=== PATIENT | female | born 1970 | race Caucasian/White ===

== ENCOUNTER → 2017-08-08 | Outpatient (CLI) | payer OTHER | LOC: FIMAGING 14:13 | PROVIDERS: ATTEND Family Medicine | DX: Z12.31 Encounter for screening mammogram for malignant neoplasm of breast (principal); Z80.3 Family history of malignant neoplasm of breast ==

== ENCOUNTER 2018-05-27 17:54 | Emergency (ER) | payer OTHER ==
[2018-05-27] MEDS ORDERED: ASPIRIN 81 MG CHEWABLE TAB PO ONE (18:03)
[2018-05-27 18:28] LABS: PLATELET COUNT 334 10^3/uL (150-400)
[2018-05-27 18:36] LABS: INR 0.96 (0.83-1.16)
--- NOTE | 2018-05-27 19:05 | EDPHY ---
H & P Time Seen by Provider: 05/27/18 18:03 HPI/ROS: HPI Chest pain, shortness of breath. 47-year-old female by private vehicle with her daughter. This patient reports that since Saturday she has had chest pain which she describes as mid substernal pressure in tightness on and off with associated shortness of breath. Her shortness of breath is worse with exertion. She has also felt fatigued and has had associated nausea with this pain. She has taken antacids with no relief. She reports her grandmother had a heart attack in her 50s. Otherwise she denies any cardiac risk factors. No history of diabetes, hypertension, hyperlipidemia. She does not smoke. She denies feeling anxious. She states she has not had a lot of stress in her life recently. ROS: Constitutional: No fever, no chills. No weakness. Eyes: No discharge. No changes in vision. ENT: No sore throat. No nasal congestion or rhinorrhea. Respiratory: No cough. As above. Cardiac: As above, no palpitations. Gastrointestinal: No abdominal pain, no vomiting, no diarrhea. Genitourinary: No hematuria. No dysuria or increased frequency with urination. Musculoskeletal: No back pain. No neck pain. No myalgias or arthralgias. Skin: No rashes. Neurological: No headache. No focal weakness or altered sensation. Past medical history: Includes hysterectomy. She denies any other significant past medical history. Social history: Nonsmoker. Here with her daughter. She is . Her is out of town currently. No alcohol. Physical Exam: General Appearance: Alert, no distress. This patient is responding to questions appropriately and in full sentences. This patient appears well- hydrated and well-nourished. Eyes: Pupils equal and round no pallor or injection. No lid edema, erythema or injection. Respiratory: There are no retractions, lungs are clear to auscultation with good air movement bilaterally. Cardiovascular: Regular rate and rhythm. No murmur appreciated. Gastrointestinal: Abdomen is soft and nontender, no masses, bowel sounds normal. No focal tenderness at McBurney's point. No Gil sign. Neurological: Motor sensory function is grossly intact. Cranial nerves are normal. Gait is normal. Skin: Warm and dry, no rashes. Musculoskeletal: Neck is supple and nontender. Extremities are symmetrical. All joints range without pain or impingement. Psychiatric: No agitation. No depression. Database: EKG: EKG time is 6:22 p.m.; EKG shows a narrow complex normal sinus rhythm with a ventricular rate of 73. The NE, QRS, QT intervals are within normal limits. There are no ST-T wave changes indicative of ischemic or injury pattern. No evidence of right heart strain. Interpreted by me. Imaging: Chest x-ray AP portable; the cardiac mediastinal silhouette is unremarkable. No evidence of infiltrate or pneumothorax. No acute cardiopulmonary disease process noted. Interpreted by me. CT angiogram of chest; negative for pulmonary embolism or other significant pathology. Results were discussed with staff radiologist. Procedures: Emergency department course: Triage vital signs reviewed. She is moderately hypertensive. Vital signs are otherwise normal. She was given 324 mg of chewed aspirin. IV was placed. EKG obtained. Heart score is 2-3 putting her in the low risk category. D-dimer is slightly elevated. This considered with her symptoms of shortness of breath CT angiogram to be obtained of her chest. She consents to this study. 7:10 p.m., patient re-evaluated. She is waiting for her CT scan. She was up and ambulatory to the bathroom. She reports that she still has some chest discomfort as described above and she felt lightheaded going to the bathroom. Although her heart score is within the low risk category, she remains symptomatic. I will admit her for observation overnight to the hospitalist service. She endorses. Hospitalist paged. 7:20 p.m., spoke with on-call hospitalist Dr. Win Espinoza. Case discussed in detail with him. He accepts this patient for admission to telemetry observation. The patient was admitted in stable condition. Differential Diagnosis: The differential diagnosis on this patient includes but is not limited to acute coronary syndrome, esophageal spasm, anxiety reaction, pulmonary embolism. This represents a partial list of diagnoses considered. These considerations are based on history, physical exam, past history, reassessment and diagnostic testing. Smoking Status: Never smoked Constitutional: Initial Vital Signs Heart Rate 75 05/27/18 18:00 Respiratory Rate 16 05/27/18 18:00 Blood Pressure 154/94 H 05/27/18 18:00 O2 Sat (%) 99 05/27/18 18:00 O2 Delivery Mode Room Air Allergies/Adverse Reactions: tree nut [Nuts] Allergy (Verified 05/27/18 18:04) Home Medications: Medication Instructions Recorded Aspirin [Aspirin 81mg (*)] 162 mg PO DAILY PRN 05/27/18 Norethindrone-E.estradiol-Iron [Lo 1 tab PO DAILY 05/27/18 Loestrin Fe 1-10 Tablet] Medical Decision Making - Data Points Laboratory Results: Laboratory Results 05/27/18 18:05 05/27/18 18:05 Medications Given: Discontinued Medications Al Hydroxide/Mg Hydroxide (Maalox Susp) 30 ml PO ONCE ONE Stop: 05/27/18 21:33 Last Admin: 05/27/18 22:36 Dose: 30 ml Aspirin (Aspirin) 324 mg PO EDNOW ONE Stop: 05/27/18 18:04 Last Admin: 05/27/18 18:23 Dose: 243 mg Hyoscyamine Sulfate (Levsin, Hyomax-Sl) 0.25 mg PO ONCE ONE Stop: 05/27/18 21:33 Last Admin: 05/27/18 22:36 Dose: 0.25 mg Lidocaine (Lidocaine 2% Viscous) 15 ml PO ONCE ONE Stop: 05/27/18 21:33 Last Admin: 05/27/18 22:36 Dose: 15 ml Point of Care Test Results: Chemistry 05/27/18 18:14 POC Troponin I 0.01 ng/mL ng/mL (0.00-0.08) Departure - Departure Disposition: Against Medical Advice Clinical Impression: Chest pain, Dyspnea Condition: Fair Instructions: Chest Pain (DC) Referrals: Shona Love MD [Primary Care Provider] - As per Instructions Juan M Patten MD [Medical Doctor] -
[2018-05-27] MEDS ORDERED: IOPAMIDOL (ISOVUE 370) 100 ML BTL IV ONE (19:27)
[2018-05-27] MEDS ORDERED: ONDANSETRON 4 MG/2 ML VIAL IVP PRN (19:48)
[2018-05-27] MEDS ORDERED: ONDANSETRON DISINTEGRATING 4 MG TAB PO PRN (19:48)
[2018-05-27] MEDS ORDERED: ACETAMINOPHEN 325 MG TAB PO PRN (19:48)
--- NOTE | 2018-05-27 20:27 | PDGENHP ---
<Norma Sue - Last Filed: 05/27/18 20:20> History and Physical - Chief Complaint Chest pain, SOB - History of Present Illness 47 y/o female with history of pneumonia presents to the ED with chest pain described as tightness and SOB. Onset was Saturday and chest tightness located in the sternal region. There is nothing that alleviates or aggravates this tightness. At the same time, she experienced shortness of breath and lightheadedness. She thought these feelings would go away. She became very concerned after taking her dogs for a walk and had intense difficulty catching her breath. She reports feeling out of breath which is very unlike her. She also said she felt like she needed to take a nap and she never takes naps. She compares her feeling in her chest to the times she had pneumonia. She feels lightheaded while upright and ambulating. She is being admitted for further diagnostic work up and monitoring. History Information - Allergies/Home Medication List Allergies/Adverse Reactions: tree nut [Nuts] Allergy (Verified 05/27/18 18:04) Home Medications: Aspirin [Aspirin 81mg (*)] 162 mg PO DAILY PRN 05/27/18 [Last Taken 05/27/18] Norethindrone-E.estradiol-Iron [Lo Loestrin Fe 1-10 Tablet] 1 tab PO DAILY 05/27 [Last Taken 05/27/18] I have personally reviewed and updated: family history, medical history, social history, surgical history - Past Medical History pneumonia - Surgical History Reports: hysterectomy - Family History Positive for: non-pertinent - Social History Smoking Status: Never smoked Alcohol Use: Occasionally Drug Use: None Review of Systems Review of Systems: Lab data and Imaging reviewed. ROS: 10pt was reviewed & negative except for what was stated in HPI & below Constitutional: Reports: chills EENMT: Reports: no symptoms Cardiac: Reports: chest pain, lightheadedness Respiratory: Reports: shortness of breath Gastrointestinal: Reports: no symptoms Genitourinary: Reports: no symptoms Muscolosketal: Reports: no symptoms Skin: Reports: no symptoms Neurological: Reports: no symptoms Hematologic/Lymphatic: Reports: no symptoms Immunologic/Allergy: Reports: other (See above) Physical Exam Physical Exam: Temp Pulse Resp BP Pulse Ox 36.7 C 92 16 154/94 H 96 05/27/18 18:05/27/18 18:05/27/18 18:05/27/18 18:05/27/18 18: Constitutional: other (Appears mildly anxious) Eyes: PERRL, anicteric sclera, EOMI Ears, Nose, Mouth, Throat: moist mucous membranes, hearing normal, ears appear normal, no oral mucosal ulcers Cardiovascular: regular rate and rhythym, no murmur, rub, or gallop, pulses symmetric bilaterally, No edema Peripheral Pulses: 2+: dorsalis-pedis (R) (Radial 2+), dorsalis-pedis (L) ( Radial 2+) Respiratory: reduced air movement (Diminished lung sounds throughout), respiratory distress (Mild) Gastrointestinal: normoactive bowel sounds, soft, non-tender abdomen, no palpable masses Genitourinary: no bladder fullness, no bladder tenderness Skin: warm, normal color, no rashes or abrasions, no fluctuance, no induration, No mottled Musculoskeletal: full muscle strength, no muscle tenderness, normal joint ROM, no joint effusions Neurologic: AAOx3, sensation intact bilaterally, CN II-XII Intact Psychiatric: interacting appropriately, not anxious, not encephalopathic, thought process linear Lymph, Heme, Immunologic: no cervical LAD, no supraclavicular LAD Lab Data & Imaging Review 05/27/18 18:05 05/27/18 18:05 WBC 10.61 10^3/uL (3.80-9.50) H 05/27/18 18:05 RBC 4.80 10^6/uL (4.18-5.33) 05/27/18 18:05 Hgb 14.6 g/dL (12.6-16.3) 05/27/18 18:05 Hct 43.2 % (38.0-47.0) 05/27/18 18:05 MCV 90.0 fL (81.5-99.8) 05/27/18 18:05 MCH 30.4 pg (27.9-34.1) 05/27/18 18:05 MCHC 33.8 g/dL (32.4-36.7) 05/27/18 18:05 RDW 13.3 % (11.5-15.2) 05/27/18 18:05 Plt Count 334 10^3/uL (150-400) 05/27/18 18:05 MPV 10.4 fL (8.7-11.7) 05/27/18 18:05 Neut % (Auto) 55.1 % (39.3-74.2) 05/27/18 18:05 Lymph % (Auto) 33.8 % (15.0-45.0) 05/27/18 18:05 Dubois % (Auto) 7.6 % (4.5-13.0) 05/27/18 18:05 Eos % (Auto) 2.3 % (0.6-7.6) 05/27/18 18:05 Baso % (Auto) 0.7 % (0.3-1.7) 05/27/18 18:05 Nucleat RBC Rel Count 0.0 % (0.0-0.2) 05/27/18 18:05 Absolute Neuts (auto) 5.85 10^3/uL (1.70-6.50) 05/27/18 18:05 Absolute Lymphs (auto) 3.59 10^3/uL (1.00-3.00) H 05/27/18 18:05 Absolute Monos (auto) 0.81 10^3/uL (0.30-0.80) H 05/27/18 18:05 Absolute Eos (auto) 0.24 10^3/uL (0.03-0.40) 05/27/18 18:05 Absolute Basos (auto) 0.07 10^3/uL (0.02-0.10) 05/27/18 18:05 Absolute Nucleated RBC 0.00 10^3/uL (0-0.01) 05/27/18 18:05 Immature Gran % 0.5 % (0.0-1.1) 05/27/18 18:05 Immature Gran # 0.05 10^3/uL (0.00-0.10) 05/27/18 18:05 PT 13.0 SEC (12.0-15.0) 05/27/18 18:05 INR 0.96 (0.83-1.16) 05/27/18 18:05 APTT 22.5 SEC (23.0-38.0) L 05/27/18 18:05 D-Dimer 0.51 ug/mLFEU (0.00-0.50) H 05/27/18 18:05 Sodium 138 mEq/L (135-145) 05/27/18 18:05 Potassium 3.9 mEq/L (3.3-5.0) 05/27/18 18:05 Chloride 104 mEq/L (97-110) 05/27/18 18:05 Carbon Dioxide 23 mEq/l (22-31) 05/27/18 18:05 Anion Gap 11 mEq/L (6-14) 05/27/18 18:05 BUN 17 mg/dL (7-23) 05/27/18 18:05 Creatinine 1.0 mg/dL (0.6-1.0) 05/27/18 18:05 Estimated GFR 60 05/27/18 18:05 Glucose 118 mg/dL (70-100) H 05/27/18 18:05 Calcium 10.1 mg/dL (8.5-10.4) 05/27/18 18:05 POC Troponin I 0.01 ng/mL (0.00-0.08) 05/27/18 18:14 Beta HCG, Qual NEGATIVE 05/27/18 18:05 Imaging Review: prelim read cta per ED report neg for PE Assessment & Plan Assessment: 47 y/o female presents d/t chest pains and dyspnea Plan: #Chest pains: low risk for ACS; suspect upper viral respiratory -Elevated BPs; 154/94; monitor -Cycle trops -Continuous tele monitoring -Cycle EKGs; first EKG NSR -Orthostatic BP x 1 #Dyspnea: differentials asthma vs anxiety vs allergic reaction ( WBC 10.61) -Will place on tele for further monitoring. -CXR negative, CTA prelim negative for PE -Monitor o2 Diet: NPO until CTA results VTE ppx: SCDs Code: Full Dispo: Admit to obs <Win Espinoza - Last Filed: 05/27/18 21:30> History and Physical - History of Present Illness Review of Systems Review of Systems: Physical Exam Physical Exam: Physical Exam patient seen and examined at bedside. I agree with the PE noted by [employer] [place] Temp Pulse Resp BP Pulse Ox 36.7 C 92 16 154/94 H 96 05/27/18 18:01 05/27/18 18:01 05/27/18 18:01 05/27/18 18:01 05/27/18 18:01 Lab Data & Imaging Review 05/27/18 18:05/27/18 18:05 WBC 10.61 10^3/uL (3.80-9.50) H 05/27/18 18:05 RBC 4.80 10^6/uL (4.18-5.33) 05/27/18 18: Hgb 14.6 g/dL (12.6-16.3) 05/27/18 18: Hct 43.2 % (38.0-47.0) 05/27/18 18: MCV 90.0 fL (81.5-99.8) 05/27/18 18: MCH 30.4 pg (27.9-34.1) 05/27/18 18: MCHC 33.8 g/dL (32.4-36.7) 05/27/18 18: RDW 13.3 % (11.5-15.2) 05/27/18 18: Plt Count 334 10^3/uL (150-400) 05/27/18 18: MPV 10.4 fL (8.7-11.7) 05/27/18 18:05 Neut % (Auto) 55.1 % (39.3-74.2) 05/27/18 18:05 Lymph % (Auto) 33.8 % (15.0-45.0) 05/27/18 18:05 Dubois % (Auto) 7.6 % (4.5-13.0) 05/27/18 18:05 Eos % (Auto) 2.3 % (0.6-7.6) 05/27/18 18:05 Baso % (Auto) 0.7 % (0.3-1.7) 05/27/18 18:05 Nucleat RBC Rel Count 0.0 % (0.0-0.2) 05/27/18 18:05 Absolute Neuts (auto) 5.85 10^3/uL (1.70-6.50) 05/27/18 18:05 Absolute Lymphs (auto) 3.59 10^3/uL (1.00-3.00) H 05/27/18 18:05 Absolute Monos (auto) 0.81 10^3/uL (0.30-0.80) H 05/27/18 18:05 Absolute Eos (auto) 0.24 10^3/uL (0.03-0.40) 05/27/18 18:05 Absolute Basos (auto) 0.07 10^3/uL (0.02-0.10) 05/27/18 18:05 Absolute Nucleated RBC 0.00 10^3/uL (0-0.01) 05/27/18 18:05 Immature Gran % 0.5 % (0.0-1.1) 05/27/18 18:05 Immature Gran # 0.05 10^3/uL (0.00-0.10) 05/27/18 18:05 PT 13.0 SEC (12.0-15.0) 05/27/18 18:05 INR 0.96 (0.83-1.16) 05/27/18 18:05 APTT 22.5 SEC (23.0-38.0) L 05/27/18 18:05 D-Dimer 0.51 ug/mLFEU (0.00-0.50) H 05/27/18 18:05 Sodium 138 mEq/L (135-145) 05/27/18 18:05 Potassium 3.9 mEq/L (3.3-5.0) 05/27/18 18:05 Chloride 104 mEq/L (97-110) 05/27/18 18:05 Carbon Dioxide 23 mEq/l (22-31) 05/27/18 18:05 Anion Gap 11 mEq/L (6-14) 05/27/18 18:05 BUN 17 mg/dL (7-23) 05/27/18 18:05 Creatinine 1.0 mg/dL (0.6-1.0) 05/27/18 18:05 Estimated GFR 60 05/27/18 18:05 Glucose 118 mg/dL (70-100) H 05/27/18 18:05 Calcium 10.1 mg/dL (8.5-10.4) 05/27/18 18:05 POC Troponin I 0.01 ng/mL (0.00-0.08) 05/27/18 18:14 Beta HCG, Qual NEGATIVE 05/27/18 18:05 Assessment & Plan Assessment: Chest pain (Acute) Dyspnea (Acute) Plan: ddx GERD vs anxiety vs reactive airway disease p/ trial GI cocktail trial albuterol agree with cycling troponin given active chest pain
[2018-05-27] MEDS ORDERED: ALBUTEROL 3 ML DEYVIAL IH PRN (20:53)
[2018-05-27] MEDS ORDERED: MAG HYDROX/AL HYDROX/SIMETH 30 ML UDCUP PO ONE (21:32)
[2018-05-27] MEDS ORDERED: LIDOCAINE 2% VISCOUS 15 ML UDCUP PO ONE (21:32)
[2018-05-27] MEDS ORDERED: HYOSCYAMINE SULFATE 0.125 MG TAB PO ONE (21:32)
--- NOTE | 2018-05-27 21:43 | CPEKG ---
Test Reason : OPEN Blood Pressure : / mmHG Vent. Rate : 073 BPM Atrial Rate : 072 BPM P-R Int : 154 ms QRS Dur : 084 ms QT Int : 385 ms P-R-T Axes : 062 061 045 degrees QTc Int : 425 ms Sinus rhythm Confirmed by Kristal Landis ([id number]) on 05/27/2018 9:43:17 PM Referred By: Confirmed By:Kristal Landis
[2018-05-27 21:56] VITALS: BP 120/76
[2018-05-28] MEDS ORDERED: NORETHINDRONE E ESTRADIOL IRON PO SCH (09:00)
[2018-05-28] MEDS ORDERED: ASPIRIN EC 325 MG TAB PO ONE (09:22)
== END 2018-05-27 22:50 | disposition left against medical advice (07) ==
LOC: UNDOADMOB 19:21
DX: R07.9 Chest pain, unspecified (principal); R06.00 Dyspnea, unspecified
CPT/HCPCS: 84484-PO; Q9967

== ENCOUNTER → 2018-08-15 | Outpatient (CLI) | payer OTHER | LOC: BMCIMAGING 10:19 | PROVIDERS: ATTEND Family Medicine | DX: J40 Bronchitis, not specified as acute or chronic (principal) ==

== ENCOUNTER → 2018-08-21 | Outpatient (CLI) | payer OTHER | LOC: FIMAGING 10:45 | PROVIDERS: ATTEND Family Medicine | DX: Z12.31 Encounter for screening mammogram for malignant neoplasm of breast (principal); Z80.3 Family history of malignant neoplasm of breast ==